=== PATIENT | male | born 1960 | race Caucasian/White ===

== ENCOUNTER 2018-03-17 08:44 | Observation (INO) | payer OTHER ==
[2018-03-17 09:51] LABS: ABSOLUTE BASOPHILS # (AUTO) 0.1 10^3/uL (0.0-0.2); ABSOLUTE EOSINOPHILS # (AUTO) 0.1 10^3/uL (0.0-0.6); ABSOLUTE LYMPHOCYTES (AUTO) 1.5 10^3/uL (0.5-4.7); ABSOLUTE MONOCYTES (AUTO) 0.4 10^3/uL (0.1-1.4); ABSOLUTE NEUT (AUTO) 3.6 10^3/uL (1.7-8.2); BASOPHILS % (AUTO) 0.9 % (0-2); EOSINOPHILS % (AUTO) 2.1 % (0-6); HEMATOCRIT 38.4 % (37.9-51.0); HEMOGLOBIN 13.2 g/dL (13.5-17.0); LYMPHOCYTES % (AUTO) 26.2 % (13-45); MEAN CORPUSCULAR HEMOGLOBIN 29.4 pg (27.0-33.4); MEAN CORPUSCULAR HGB CONC 34.5 g/dL (32.0-36.0); MEAN CORPUSCULAR VOLUME 85 fl (80-97); PLATELET COUNT 302 10^3/uL (150-450); RED BLOOD COUNT 4.51 10^6/uL (4.35-5.55); SEGMENTED NEUTROPHILS % (AUTO) 63.8 % (42-78); TOTAL CELLS COUNTED % (AUTO) 100 %; WHITE BLOOD COUNT 5.7 10^3/uL (4.0-10.5)
[2018-03-17 09:54] LABS: INTERNATIONAL RATION (INR) 0.94
[2018-03-17 09:55] LABS: PARTIAL THROMBOPLASTIN TIME 35.1 SEC (23.5-35.8)
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
[2018-03-17 10:14] LABS: ALANINE AMINOTRANSFERASE 35 U/L (21-72); ALKALINE PHOSPHATASE 67 U/L (38-126); ANION GAP 9 (5-19); ASPARTATE AMINO TRANSFERASE 20 U/L (17-59); BILIRUBIN,DIRECT 0.3 mg/dL (0.0-0.4); BILIRUBIN,TOTAL 0.4 mg/dL (0.2-1.3); BLOOD UREA NITROGEN 14 mg/dL (7-20); CALCIUM 9.4 mg/dL (8.4-10.2); CARBON DIOXIDE 29 mmol/L (22-30); CHLORIDE 103 mmol/L (98-107); CREATINE KINASE 92 U/L (55-170); GLUCOSE 109 mg/dL (75-110); POTASSIUM 4.9 mmol/L (3.6-5.0); SODIUM 141.2 mmol/L (137-145); TOTAL PROTEIN 6.7 g/dL (6.3-8.2)
--- NOTE | 2018-03-17 10:17 | RADIOLOGY REPORT (SQ) ---
EXAM DESCRIPTION: CT HEAD WITHOUT COMPLETED DATE/TIME: 03/17/2018 9:48 am REASON FOR STUDY: slurred speech COMPARISON: None. TECHNIQUE: Axial images acquired through the brain without intravenous contrast. Images reviewed wi th bone, brain and subdural windows. Additional sagittal and coronal reconstructions were generated. Images stored on PACS. All CT scanners at this facility use dose modulation, iterative reconstruction, and/or weight based d osing when appropriate to reduce radiation dose to as low as reasonably achievable (ALARA). [facility]: Dose Right [facility]: CareDose [facility]: Dose Right [facility]: Teradose 4D [facility]: [employer] RADIATION DOSE: CT Rad equipment meets quality standard of care and radiation dose reduction techniq ues were employed. CTDIvol: 53.2 mGy. DLP: 1070 mGy-cm. mGy. LIMITATIONS: None. FINDINGS: VENTRICLES: Normal size and contour. CEREBRUM: There is an area of encephalomalacia in the right temporal parietal lobe. Normal condon/white matter differentiation. No areas of low density in the white matter. CEREBELLUM: No masses. No hemorrhage. No alteration of density. No evidence for acute infarction. EXTRAAXIAL SPACES: No fluid collections. No masses. ORBITS AND GLOBE: No intra- or extraconal masses. Normal contour of globe without masses. CALVARIUM: Craniotomy changes are present on the right. PARANASAL SINUSES: No fluid or mucosal thickening. SOFT TISSUES: No mass or hematoma. OTHER: An aneurysm clip is present on the right. IMPRESSION: Prior surgical changes on the right. No history is given regarding this. No acute intr acranial imaging findings. EVIDENCE OF ACUTE STROKE: NO. COMMENT: Quality ID # 436: Final reports with documentation of one or more dose reduction techniques (e.g., Automated exposure control, adjustment of the mA and/or kV according to patient size, use of iterative reconstruction technique) TECHNICAL DOCUMENTATION: JOB ID: [id number] [employer]- All Rights Reserved Reading location - IP/workstation name: [email or web address]
--- NOTE | 2018-03-17 10:22 | RADIOLOGY REPORT (SQ) ---
EXAM DESCRIPTION: CHEST SINGLE VIEW COMPLETED DATE/TIME: 03/17/2018 10:00 am REASON FOR STUDY: slurred speech COMPARISON: 06/11/2015 EXAM PARAMETERS: NUMBER OF VIEWS: One view. TECHNIQUE: Single frontal radiographic view of the chest acquired. RADIATION DOSE: NA LIMITATIONS: None. FINDINGS: LUNGS AND PLEURA: No opacities, masses or pneumothorax. No pleural effusion. MEDIASTINUM AND HILAR STRUCTURES: No masses. Contour normal. HEART AND VASCULAR STRUCTURES: Heart normal in size. Normal vasculature. BONES: No acute findings. HARDWARE: None in the chest. OTHER: No other significant finding. IMPRESSION: NO ACUTE RADIOGRAPHIC FINDING IN THE CHEST. TECHNICAL DOCUMENTATION: JOB ID: [id number] [employer]- All Rights Reserved Reading location - IP/workstation name: [email or web address]
[2018-03-17 10:25] LABS: CREATINE KINASE MB 1.38 ng/mL (<4.55)
[2018-03-17 10:26] LABS: TROPONIN I < 0.012 ng/mL
[2018-03-17] MEDS ORDERED: ACETAMINOPHEN 325 MG TABLET PO PRN (10:50)
[2018-03-17] MEDS ORDERED: DOCUSATE SODIUM 100 MG CAPSULE PO PRN (10:50)
[2018-03-17] MEDS ORDERED: ONDANSETRON HCL INJ/PF 4 MG/2 ML SDV IV PRN (10:50)
[2018-03-17] MEDS ORDERED: MAGNESIUM HYDROXIDE SUSP 30 ML UDCUP PO PRN (10:50)
[2018-03-17] MEDS ORDERED: HYDRALAZINE HCL INJ/PF 20 MG/1 ML SDV IV PRN (10:56)
[2018-03-17] MEDS ORDERED: DIAZEPAM 5 MG TABLET PO PRN (11:17)
[2018-03-17] MEDS ORDERED: (PENDING PHARMACY ID) (Gabapentin [Neurontin] 300 MG) PO PRN (11:17)
[2018-03-17] MEDS ORDERED: METOPROLOL TARTRATE 25 MG TABLET PO ONE (12:00)
[2018-03-17] MEDS ORDERED: LISINOPRIL 10 MG TABLET PO ONE (12:00)
[2018-03-17] MEDS: HEPARIN SOD (PORCINE) 5,000 UNIT/ML 1 ML SYRINGE SUBCUT SCH ×2 (13:03→21:13)
--- NOTE | 2018-03-17 13:12 | EKG REPORT ---
SEVERITY:- NORMAL ECG - SINUS RHYTHM : Confirmed by: Goldy Bundy MD 17-Mar-2018 13:11:27
[2018-03-17] MEDS ORDERED: GABAPENTIN 300 MG CAPSULE PO PRN (13:46)
[2018-03-17] MEDS ORDERED: (PENDING PHARMACY ID) (Oxycodone Hcl/Acetaminophen [Percocet 10-325 Mg Tablet] 1 EACH) PO PRN (16:00)
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
--- NOTE | 2018-03-17 16:23 | RADIOLOGY REPORT (SQ) ---
EXAM DESCRIPTION: CAROTID DOPPLER COMPLETED DATE/TIME: 03/17/2018 4:06 pm REASON FOR STUDY: Aphasia, TIA/CVA workup COMPARISON: CT brain 03/17/2018 TECHNIQUE: Grayscale ultrasound, Doppler velocity and spectra, and color Doppler images acquired of the extra-cranial carotid and vertebral arteries. Images stored on PACS. LIMITATIONS: None. FINDINGS: RIGHT CAROTID CCA Velocities: Within normal limits. ICA Velocities Peak systolic 1.8 m/s. End diastolic 0.75 m/s. Proximal ICA/CCA peak systolic ratio 2.3. Calcific plaque shadows the origin of the right internal and external carotid arteries. Just distal to the shadowing plaque, elevated velocities are present with very turbulent flow. Velocities sugges t 70 to 99% stenosis. LEFT CAROTID CCA Velocities: Within normal limits. ICA Velocities Peak systolic 2.2 m/s. End diastolic 0.8 m/s. Proximal ICA/CCA peak systolic ratio 2.5. Calcific plaque shadows the origin of the left internal and external carotid arteries. Immediately d istal to the shadowing plaque, left ICA velocities suggest 70 to 99% stenosis. VERTEBRAL ARTERIES: Antegrade flow. Normal waveforms. SUBCLAVIAN ARTERIES: Not evaluated. OTHER: No other significant finding. IMPRESSION: Significant calcific shadowing plaque at both carotid bifurcations. Both the right and left ICA just distal to the shadowing plaque demonstrate elevated velocities with turbulent flow worr isome for 70 to 99% proximal ICA stenosis. Patient is unable to undergo MRI due to multiple implanted devices. These findings were discussed wi MELLISSA Edwards. CT angio neck and ram[place] of [place] recommended for followup. COMMENT: Quality ID #[id number]: Velocity criteria are extrapolated from the diameter data as defined by t justin Society of Radiologists in Ultrasound Consensus Conference. Radiology 2003: 229; 340-346. TECHNICAL DOCUMENTATION: JOB ID: [id number] [employer]- All Rights Reserved Reading location - IP/workstation name: [facility]
[2018-03-17] MEDS: OXYCODONE-ACETAMINOPHEN 5-325 MG TABLET PO PRN ×2 (17:04→21:14)
[2018-03-17] MEDS: OXYCODONE HCL IR 5 MG TABLET PO PRN ×2 (17:05→21:14)
--- NOTE | 2018-03-17 17:40 | RADIOLOGY REPORT (SQ) ---
EXAM DESCRIPTION: CTA HEAD COMPLETED DATE/TIME: 03/17/2018 5:01 pm REASON FOR STUDY: TIA/CVA symptoms (Patient is Right hand dominate) COMPARISON: None. TECHNIQUE: Post IV contrast scanning, thin section axial imaging through the brain to evaluate the a rterial structures. Source and MIP images are saved and reviewed on PACS. Advanced 3D imaging as volume-rendering, MIPs, SSD performed? yes All CT scanners at this facility use dose modulation, iterative reconstruction, and/or weight based d osing when appropriate to reduce radiation dose to as low as reasonably achievable (ALARA). [facility]: Dose Right [facility]: CareDose [facility]: Dose Right [facility]: Teradose 4D [facility]: [employer] CONTRAST TYPE AND DOSE: 100 mL Isovue 370- low osmolar. RENAL FUNCTION: GFR > 60. LIMITATIONS: None. FINDINGS: [place]: Moderate atherosclerosis -stenosis in the cavernous portions of the inte rnal carotid arteries. The anterior, middle, posterior cerebral arteries are all patent. No evidence of aneurysm or occlusion. POSTERIOR CIRCULATION: The distal vertebral arteries are patent as is the basilar artery. No aneurysm . BRAIN: No gross enhancing lesions as visualized. Postsurgical changes are present in the right poste rior temporal lobe. BONES: No acute finding. SINUSES: No fluid or mucosal thickening. OTHER: No other significant finding. IMPRESSION: No aneurysm or conclusion identified in the [place]. Moderate atherosclerosis -stenosis in the cavernous portions of the internal carotid arteries. TECHNICAL DOCUMENTATION: JOB ID: [id number] Quality ID # [id number]: Final reports with documentation of one or more dose reduction techniques (e.g., Au tomated exposure control, adjustment of the mA and/or kV according to patient size, use of iterative reconstruction technique) 2010 [employer]- All Rights Reserved Reading location - IP/workstation name: [facility]
--- NOTE | 2018-03-17 17:45 | RADIOLOGY REPORT (SQ) ---
EXAM DESCRIPTION: CTA NECK COMPLETED DATE/TIME: 03/17/2018 5:01 pm REASON FOR STUDY: TIA/CVA symptoms (Patient is Right hand dominate) COMPARISON: None. TECHNIQUE: Axial dynamic scanning technique with dynamic contrast enhancement through the extra-aircraft engine installer nial carotid and vertebral arteries. Multiplanar reconstruction. 3-D MIPS and Volume-rendered imag es acquired at the workstation and saved to PACS. Images are reviewed in soft tissue, bone, lung w indows. All CT scanners at this facility use dose modulation, iterative reconstruction, and/or weight based d osing when appropriate to reduce radiation dose to as low as reasonably achievable (ALARA). [facility]: Dose Right [facility]: CareDose [facility]: Dose Right [facility]: Teradose 4D [facility]: Jukely CONTRAST TYPE AND DOSE: contrast/concentration: Isovue 370.00 mg/ml; Total Contrast Delivered: 70.0 ml; Total Saline Delivered: 75.0 ml RENAL FUNCTION: GFR > 60. LIMITATIONS: None. FINDINGS: AORTIC ARCH: Normal three-vessel origin. Bilateral subclavian arteries are patent. No d issection. RIGHT CAROTIDS: Moderate atherosclerosis-stenosis in the internal carotid artery above the bifurcatio n as well as in the cavernous portion. No dissection. RIGHT VERTEBRAL: Mild -moderate atherosclerosis at the origin. No dissection. LEFT CAROTIDS: Moderate atherosclerosis-stenosis in the internal carotid artery above the bifurcation as well as in the cavernous portion. No dissection. LEFT VERTEBRAL: Mild -moderate atherosclerosis at the origin. No dissection. OTHER: No other significant finding. OTHER: 3-D reconstructions confirm findings. IMPRESSION: Moderate bilateral atherosclerosis-stenosis in the internal carotid artery above the bif urcation as well as in the cavernous portions. Mild -moderate atherosclerosis in the vertebral arteri es at the origins. No dissection. COMMENT: Quality ID #[id number]: Measurements of distal internal carotid diameter were used as the denomina tor for stenosis measurement. TECHNICAL DOCUMENTATION: JOB ID: [id number] [place]-72 Quality ID # [id number]: Final reports with documentation of one or more dose reduction techniques (e.g., Au tomated exposure control, adjustment of the mA and/or kV according to patient size, use of iterative reconstruction technique) 2010 [employer]- All Rights Reserved Reading location - IP/workstation name: [employer]
--- NOTE | 2018-03-17 17:59 | XCELERA REPORT ---
[address] [address] Transthoracic Echocardiogram Report Name: TRAMAINE MONTES Age: 57 yrs Gender: Male : 1960 Patient Status: Inpatient Patient Location: [address] [place] [address] Study Date: 03/17/2018 02:54 PM Height: 74 in Weight: 231 lb BSA: 2.3 m2 Procedure: A complete two-dimensional transthoracic echocardiogram was performed (2D, M-mode, spectral and color flow Doppler). The study was technically adequate with some images being suboptimal in quality. Reason For Study: TIA/CVA work up Ordering Physician: ALVARO HOWARD Performed By: Sandra Quintana Interpretation Summary The left ventricular ejection fraction is within normal limits. There is borderline concentric left ventricular hypertrophy. Doppler measurements suggest impaired left ventricular relaxation, which is associated with grade I/IV or mild diastolic dysfunction The left ventricle is grossly normal size. Wall motion cannot be accurately commented on, but no definite regional wall motion abnormalities noted. The right ventricular systolic function is normal. The right atrium is normal in size Borderline left atrial enlargement. There is no mitral regurgitation noted. There is no mitral valve stenosis. No aortic regurgitation is present. There is no aortic valve stenosis There is a trace or physiologic amount of tricuspid regurgitation Tricuspid regurgitation jet envelope not well defined to measure RV systolic pressure accurately. The aortic root is not well visualized but is probably normal size. The inferior vena cava appeared normal and decreased > 50% with respiration (RAP 5-10 mmHg) There is no pericardial effusion. MMode/2D Measurements & Calculations RVDd: 3.3 cm LVIDd: 4.7 cmFS: 38.4 % Ao root diam: 3.7 cm IVSd: 1.1 cm LVIDs: 2.9 cmEDV(Teich): 102.3 ml LVPWd: 1.1 cmESV(Teich): 32.1 ml Ao root area: 10.7 cm2 EF(Teich): 68.6 % LA dimension: 3.7 cm LVOT diam: 2.1 cm LVOT area: 3.3 cm2 Doppler Measurements & Calculations MV E max ayde: MV P1/2t max ayde: Ao V2 max: LV V1 max P.1 cm/sec 69.0 cm/sec 146.6 cm/sec 7.2 mmHg MV A max ayde: MV P1/2t: 55.4 msec Ao max PG: LV V1 max: 65.6 cm/sec MVA(P1/2t): 4.0 cm2 8.6 mmHg 134.3 cm/sec MV E/A: 1.0 MV dec slope: ANDRES(V,D): 3.0 cm2 365.1 cm/sec2 PA V2 max: TR max ayde: 94.8 cm/sec 229.8 cm/sec PA max PG: TR max P.1 mmHg 3.6 mmHg Left Ventricle The left ventricle is grossly normal size. There is borderline concentric left ventricular hypertrophy. The left ventricular ejection fraction is within normal limits. Doppler measurements suggest impaired left ventricular relaxation, which is associated with grade I/IV or mild diastolic dysfunction. Wall motion cannot be accurately commented on, but no definite regional wall motion abnormalities noted. Right Ventricle Borderline right ventricular enlargement. There is normal right ventricular wall thickness. The right ventricular systolic function is normal. Atria The right atrium is normal in size. Borderline left atrial enlargement. Interarterial septum not well visualized and not well dopplered. Cannot comment on ASD/PFO presence. Mitral Valve The mitral valve is grossly normal. There is no mitral valve stenosis. There is no mitral regurgitation noted. Aortic Valve The aortic valve is grossly normal. There is no aortic valve stenosis. No aortic regurgitation is present. Tricuspid Valve The tricuspid valve is not well visualized, but is grossly normal. There is no tricuspid stenosis. There is a trace or physiologic amount of tricuspid regurgitation. Tricuspid regurgitation jet envelope not well defined to measure RV systolic pressure accurately. Pulmonic Valve The pulmonic valve is not well visualized. Great Vessels The aortic root is not well visualized but is probably normal size. The inferior vena cava appeared normal and decreased > 50% with respiration (RAP 5-10 mmHg). Effusions There is no pericardial effusion. Incidental Findings No definite cardiac source of CVA/TIA noted on this particular trans- thoracic study. Consider ERIK if clinically indicated. May consider mobile cardiac telemetry monitoring (MCT) for ruling out transient AFIB. : ALVARO HOWARD > Boaz Pineda
[2018-03-17] MEDS: FAMOTIDINE 20 MG TABLET PO SCH (21:13)
[2018-03-17] MEDS ORDERED: ATORVASTATIN CALCIUM 80 MG TABLET PO SCH (22:00)
[2018-03-18] MEDS: OXYCODONE HCL IR 5 MG TABLET PO PRN ×3 (04:42→13:37)
[2018-03-18] MEDS: OXYCODONE-ACETAMINOPHEN 5-325 MG TABLET PO PRN ×3 (04:42→13:36)
[2018-03-18 05:09] LABS: HEMATOCRIT 36.5 % (37.9-51.0); HEMOGLOBIN 12.8 g/dL (13.5-17.0); MEAN CORPUSCULAR HEMOGLOBIN 29.8 pg (27.0-33.4); MEAN CORPUSCULAR VOLUME 85 fl (80-97); PLATELET COUNT 247 10^3/uL (150-450); RED BLOOD COUNT 4.28 10^6/uL (4.35-5.55); RED CELL DISTRIBUTION WIDTH 13.3 % (11.5-14.0); WHITE BLOOD COUNT 4.6 10^3/uL (4.0-10.5)
[2018-03-18] MEDS: HEPARIN SOD (PORCINE) 5,000 UNIT/ML 1 ML SYRINGE SUBCUT SCH ×2 (05:09→13:37)
[2018-03-18 05:34] LABS: ALANINE AMINOTRANSFERASE 32 U/L (21-72); ALBUMIN 3.8 g/dL (3.5-5.0); ALKALINE PHOSPHATASE 56 U/L (38-126); ANION GAP 11 (5-19); ASPARTATE AMINO TRANSFERASE 18 U/L (17-59); BILIRUBIN,DIRECT 0.2 mg/dL (0.0-0.4); BILIRUBIN,TOTAL 0.3 mg/dL (0.2-1.3); BLOOD UREA NITROGEN 13 mg/dL (7-20); CALCIUM 9.3 mg/dL (8.4-10.2); CARBON DIOXIDE 27 mmol/L (22-30); CHLORIDE 105 mmol/L (98-107); GLUCOSE 113 mg/dL (75-110); TOTAL PROTEIN 6.6 g/dL (6.3-8.2); TRIGLYCERIDES 118 mg/dL (<150)
[2018-03-18 05:45] LABS: DIRECT LDL 134 mg/dL (<100)
[2018-03-18] MEDS ORDERED: LISINOPRIL 40 MG PO SCH (08:00)
[2018-03-18] MEDS: FAMOTIDINE 20 MG TABLET PO SCH (09:22)
[2018-03-18] MEDS ORDERED: ASPIRIN 81 MG TABLET, ENT COATED PO SCH (10:00)
[2018-03-18] MEDS ORDERED: METOPROLOL TARTRATE 25 MG TABLET PO SCH (10:00)
[2018-03-18] MEDS ORDERED: LISINOPRIL 10 MG TABLET PO SCH ×2 (10:00)
--- NOTE | 2018-03-18 11:33 | PDOC TRANSFER SUMMARY ---
General Admission Date/PCP: 03/17/18 11:22 LEXY SCRUGGS MD Admission Date: 03/17/18 Accepting Facility: [facility] Accepting Physician: Dr. Kecia Mcdonnell (neurology) Resuscitation Status: Full Code - Transfer Diagnosis (1) TIA (transient ischemic attack) Is this a current diagnosis for this admission?: Yes Diagnosis Summary: The patient presented with complaint of intermittent left facial numbness 4 days with altered speech first noted the evening of 03/16/18. He presented to the emergency department midday on 03/17/18 as his speech had not improved after sleeping (patient initially thought that perhaps he was over fatigue). He was subsequently admitted for TIA/CVA workup. (2) Hyperlipidemia Is this a current diagnosis for this admission?: Yes Diagnosis Summary: Lipid panel obtained this morning: HDL 48, LDL 134, triglyceride 118, total cholesterol 222 The patient was placed on atorvastatin 80 mg nightly on admission. (3) HTN (hypertension) Is this a current diagnosis for this admission?: Yes Diagnosis Summary: At time of presentation to the emergency department, the patient's blood pressures were 176/92 and 163/102. Adequate blood pressure control was obtained through continuation of the patient 's home medication regimen. Current blood pressure is 133/71. (4) Chronic back pain Is this a current diagnosis for this admission?: Yes (5) Opiate dependence, continuous Is this a current diagnosis for this admission?: Yes Diagnosis Summary: The patient's home medication regiment was continued with adequate control of chronic pain. - Transfer Medications Home Medications: Metoprolol Tartrate [Lopressor 25 mg Tablet] 25 mg PO QAM 08/31/12 Diazepam [Valium 5 mg Tablet] 5 mg PO HSP PRN 07/09/15 Gabapentin [Neurontin] 300 mg PO HSP PRN 03/17/18 Lisinopril [Prinivil 40 mg Tablet] 40 mg PO DAILY 03/17/18 Oxycodone HCl/Acetaminophen [Percocet 10-325 Mg Tablet] 1 each PO Q4HP PRN 03/17 Transfer Medications: Current Medications Acetaminophen (Tylenol 325 Mg Tablet) 650 mg PO Q4HP PRN PRN Reason: Temp greater than 101F Stop: 04/16/18 10:49 Aspirin (Ecotrin 81 Mg Ec Tablet) 81 mg PO DAILY HIMANSHU Stop: 04/17/18 09:59 Last Admin: 03/18/18 09:24 Dose: Not Given Atorvastatin Calcium (Lipitor 80 Mg Tablet) 80 mg PO QHS [facility] Stop: 04/16/18 21:59 Last Admin: 03/17/18 21:14 Dose: 80 mg Diazepam (Valium 5 Mg Tablet) 5 mg PO HSP PRN PRN Reason: SLEEP OR INSOMNIA Stop: 03/24/18 11:16 Docusate Sodium (Colace 100 Mg Capsule) 100 mg PO BIDP PRN PRN Reason: FOR CONSTIPATION Stop: 04/16/18 10:49 Famotidine (Pepcid 20 Mg Tablet) 20 mg PO Q12 HIMANSHU Stop: 04/16/18 21:59 Last Admin: 03/18/18 09:22 Dose: 20 mg Gabapentin (Neurontin 300 Mg Capsule) 300 mg PO HSP PRN PRN Reason: SLEEP OR INSOMNIA Stop: 04/16/18 13:45 Heparin Sodium (Porcine) (Heparin Inj 5,000 Units/Ml 1 Ml Syringe) 5,000 unit SUBCUT Q8 [facility] Stop: 04/16/18 13:59 Last Admin: 03/18/18 05:09 Dose: 5,000 unit Hydralazine HCl (Apresoline Inj/Pf 20 Mg/1 Ml Sdv) 10 mg IV Q6HP PRN PRN Reason: SBP>180 or DBP>100 Stop: 04/16/18 10:55 Lisinopril (Prinivil 10 Mg Tablet) 40 mg PO DAILY [facility] Stop: 04/17/18 09:59 Last Admin: 03/18/18 09:21 Dose: 40 mg Magnesium Hydroxide (Milk Of Magnesia 30 Ml Udcup) 30 ml PO HSP PRN PRN Reason: FOR CONSTIPATION Stop: 04/16/18 10:49 Metoprolol Tartrate (Lopressor 25 Mg Tablet) 25 mg PO DAILY [facility] Stop: 04/17/18 09:59 Last Admin: 03/18/18 09:22 Dose: 25 mg Ondansetron HCl (Zofran Inj/Pf 4 Mg/2 Ml Sdv) 4 mg IV Q4HP PRN PRN Reason: FOR NAUSEA/VOMITING Stop: 04/16/18 10:49 Oxycodone HCl (Oxy-Ir 5 Mg Tablet) 5 mg PO Q4HP PRN PRN Reason: FOR PAIN Stop: 03/24/18 13:48 Last Admin: 03/18/18 09:22 Dose: 5 mg Oxycodone/Acetaminophen (Percocet 5-325 Mg Tablet) 1 tab PO Q4HP PRN PRN Reason: PAIN Stop: 03/24/18 13:46 Last Admin: 03/18/18 09:23 Dose: 1 tab Sodium Chloride (Saline Flush 2.5 Ml Monoject Prefil Syrin) 2.5 ml IV Q8 [facility]AN[facility] Stop: 04/16/18 13:59 Last Admin: 03/18/18 05:09 Dose: 2.5 ml - Allergies Allergies/Adverse Reactions: No Known Allergies Allergy (Verified 03/17/18 11:57) Hospital Course Hospital Course: H&P: TRAMAINE MONTES is a 57 year old male with a past medical history significant for remote brain aneurysm and seizure status post aneurysm clip at age 22, hypertension, hyperlipidemia, chronic back pain, and opiate dependence with continuous use who presented to the emergency department with a complaint of 4 days of intermittent left facial numbness with slurred speech that first occurred yesterday evening. He reports that the facial numbness has resolved at this time. He states that the slurred speech is improved, however, has not entirely resolved. He denies associated symptoms of headache, blurred vision, confusion, difficulty swallowing, and extremity weakness. Evaluation in the emergency department was unremarkable; EKG demonstrated normal sinus rhythm, chest x-ray was negative for acute cardiopulmonary process , head CT revealed prior surgical changes on the right with aneurysm clip but no evidence of acute stroke. Vital signs and laboratory evaluation are benign. He is referred to the hospitalist for observational admission and TIA/CVA workup. Hospital course: The patient was admitted to on continuous cardiac telemetry. The patient was placed on daily atorvastatin. Aspirin was held secondary to concern of repeat injury obscured by previous aneurysm/hemorrhage. Echocardiogram revealed borderline concentric left ventricle hypertrophy, mild diastolic dysfunction, and a preserved ejection fraction. No definite definitive cardiac source of CVA/TIA was noted. Carotid Dopplers revealed bilateral proximal stenosis of 70-99%. CTA of the neck confirmed moderate bilateral stenosis of the ICAs. CTA of the head revealed arthro-stenosis to the vertebral arteries and a normal [place]. Unfortunately, due to the patient's aneurysm clip and orthopedic hardware, he is not a candidate for MRI imaging. Morning labs were benign other than mildly elevated LDL. He is noted to have a hemoglobin A1c of 5.5%. On follow-up exam , the patient demonstrates persistent speech changes. He is altered speech is very subtle as he currently speaks clearly with a southern/country accent and does not appear to have difficulty with expressive aphasia/word finding. The speech change is apparent when compared to a video clip the patient played of him talking from approximately 1 week ago. I contacted [facility] and spoke with Dr. Mcdonnell (neurology) regarding the patient's history, imaging results, and physical exam. Dr. Mcdonnell recommended follow-up transcranial Doppler and ERIK imaging which is unavailable at our facility, therefore arrangements were made for the patient to be transferred to [facility] under the care of Dr. Mcdonnell. Physical Exam Vital Signs: Temp Pulse Resp BP Pulse Ox 98.9 F 70 19 133/71 H 98 03/18/18 07:23 03/18/18 08:00 03/18/18 08:00 03/18/18 08:00 03/18/18 08:00 Intake & Output 03/17/18 03/18/18 03/19/18 06:59 06:59 06:59 Intake Total 1302 Balance 1302 Weight 102.8 kg General appearance: PRESENT: no acute distress, well-developed, well-nourished, other Head exam: PRESENT: atraumatic, normocephalic Eye exam: PRESENT: conjunctiva pink, EOMI, PERRLA. ABSENT: scleral icterus Ear exam: PRESENT: normal external ear exam Mouth exam: PRESENT: moist, tongue midline Neck exam: ABSENT: carotid bruit, JVD, lymphadenopathy, thyromegaly Respiratory exam: PRESENT: clear to auscultation dylan, symmetrical, unlabored. ABSENT: rales, rhonchi, wheezes Cardiovascular exam: PRESENT: RRR, +S1, +S2. ABSENT: diastolic murmur, rubs, systolic murmur Pulses: PRESENT: normal dorsalis pedis pul Vascular exam: PRESENT: normal capillary refill GI/Abdominal exam: PRESENT: normal bowel sounds, soft. ABSENT: distended, guarding, mass, organolmegaly, rebound, tenderness Rectal exam: PRESENT: deferred Extremities exam: PRESENT: full ROM. ABSENT: calf tenderness, clubbing, pedal edema Neurological exam: PRESENT: alert, awake, oriented to person, oriented to place , oriented to time, oriented to situation, CN II-XII grossly intact, other - Altered speech; the patient speaks with a slight southern/country accent that is significantly different than his norm when compared to audio recordings of him speaking approximately 1 week ago.. ABSENT: motor sensory deficit Psychiatric exam: PRESENT: appropriate affect, normal mood. ABSENT: homicidal ideation, suicidal ideation Skin exam: PRESENT: dry, intact, warm. ABSENT: cyanosis, rash Results Laboratory Results: 03/18/18 04:34 03/18/18 04:34 03/18/18 03/18/18 04:34 04:34 WBC 4.6 RBC 4.28 L Hgb 12.8 L Hct 36.5 L MCV 85 MCH 29.8 MCHC 35.0 RDW 13.3 Plt Count 247 Sodium 143.0 Potassium 4.0 Chloride 105 Carbon Dioxide 27 Anion Gap 11 BUN 13 Creatinine 0.76 Est GFR ( Amer) > 60 Est GFR (Non-Af Amer) > 60 Glucose 113 H Calcium 9.3 Total Bilirubin 0.3 AST 18 ALT 32 Alkaline Phosphatase 56 Total Protein 6.6 Albumin 3.8 Triglycerides 118 Cholesterol 222.30 H LDL Cholesterol Direct 134 H VLDL Cholesterol 24.0 HDL Cholesterol 48 Impressions: Head CTA 03/17/18 00:00 IMPRESSION: No aneurysm or conclusion identified in the [place]. Moderate atherosclerosis -stenosis in the cavernous portions of the internal carotid arteries. Neck CTA 03/17/18 00:00 IMPRESSION: Moderate bilateral atherosclerosis-stenosis in the internal carotid artery above the bifurcation as well as in the cavernous portions. Mild -moderate atherosclerosis in the vertebral arteries at the origins. No dissection. Chest X-Ray 03/17/18 09:34 IMPRESSION: NO ACUTE RADIOGRAPHIC FINDING IN THE CHEST. Head CT 03/17/18 09:34 IMPRESSION: Prior surgical changes on the right. No history is given regarding this. No acute intracranial imaging findings. EVIDENCE OF ACUTE STROKE: NO. Carotid Doppler Study 03/17/18 10:53 IMPRESSION: Significant calcific shadowing plaque at both carotid bifurcations. Both the right and left ICA just distal to the shadowing plaque demonstrate elevated velocities with turbulent flow worrisome for 70 to 99% proximal ICA stenosis. Patient is unable to undergo MRI due to multiple implanted devices. These findings were discussed with MELLISSA Valdez. CT angio neck and [place] recommended for followup. Plan Discharge Plan: Transfer to [facility]: Dr. Kecia Mcdonnell (neurology) has agreed to accept this patient.
[2018-03-18 12:38] VITALS: BP 118/98
== END 2018-03-18 14:41 | disposition short-term general hospital (02) ==
LOC: ER 08:44 → EH 11:22 → 3W 12:34
PROVIDERS: ADMIT Internal Medicine; ATTEND Internal Medicine
DX: G45.9 Transient cerebral ischemic attack, unspecified (principal); I69.828 Other speech and language deficits following other cerebrovascular disease; E78.5 Hyperlipidemia, unspecified; I10 Essential (primary) hypertension; G89.29 Other chronic pain; M54.5 Low back pain; F11.20 Opioid dependence, uncomplicated; I67.1 Cerebral aneurysm, nonruptured; Z95.828 Presence of other vascular implants and grafts; F10.21 Alcohol dependence, in remission; F19.11 Other psychoactive substance abuse, in remission; Z79.899 Other long term (current) drug therapy; Z86.69 Personal history of other diseases of the nervous system and sense organs; Z87.828 Personal history of other (healed) physical injury and trauma; Z87.891 Personal history of nicotine dependence; Z82.49 Family history of ischemic heart disease and other diseases of the circulatory system; Z98.890 Other specified postprocedural states
CPT/HCPCS: 36415; 70450; 70496; 70498; 71045; 80053; 80061; 82550; 82553; 83036; 83735; 84484; 85025; 85027; 85610; 85730; 93005; 93010; 93306; 93880; 99285; G0378; J1644; J3490

== ENCOUNTER → 2020-03-10 | Outpatient (CLI) | payer SELFPAY ==
--- NOTE | 2020-03-10 11:56 | RADIOLOGY REPORT (SQ) ---
EXAM DESCRIPTION: L SPINE WHOLE IMAGES COMPLETED DATE/TIME: 03/10/2020 11:43 am REASON FOR STUDY: M54.42 LUMBAGO WITH SCIATICA, LEFT SIDE M54.42 LUMBAGO WITH SCIATICA, LEFT SIDE COMPARISON: None. NUMBER OF VIEWS: Five views including obliques. TECHNIQUE: AP, lateral, oblique, and sacral radiographic images acquired of the lumbar spine. LIMITATIONS: None. FINDINGS: MINERALIZATION: Normal. SEGMENTATION: Normal. No transitional anatomy. ALIGNMENT: Normal. VERTEBRAE: Maintained height. No fracture or worrisome bone lesion. DISCS: Multilevel disc space narrowing with osteophytes. POSTERIOR ELEMENTS: Pedicles and facets are intact. No pars defect or posterior arch defects. Facet arthropathy is present. HARDWARE: Prior posterior fusion from L4 through S1. PARASPINAL SOFT TISSUES: Normal. PELVIS: Intact as visualized. No fractures or worrisome bone lesions. SI joints intact. OTHER: No other significant finding. IMPRESSION: Degenerative and postsurgical changes. No acute findings in the lumbar spine. TECHNICAL DOCUMENTATION: JOB ID: [id number] 2010 [employer]- All Rights Reserved Reading location - IP/workstation name: [email or web address]
== END ==
LOC: RAD 11:31
PROVIDERS: ATTEND Family Medicine
DX: M54.42 Lumbago with sciatica, left side (principal)
CPT/HCPCS: 72110